=== PATIENT | male | born 1950 | race Two or more races ===

== ENCOUNTER 2020-04-20 11:30 | Inpatient (IN) | payer OTHER ==
[~2020-04-20] VITALS: Ht 167.6 cm; Wt 59.9 kg
[2020-04-27] MEDS ORDERED: CELEBREX200MG PO (15:58)
[2020-04-27] MEDS ORDERED: ACETAMINOPHEN500 M1 PO (15:58)
[2020-04-27] MEDS ORDERED: AMITRIPTYLINE H10 MG PO (15:59)
[2020-04-27] MEDS ORDERED: PEPCID40 MG PO (16:00)
[2020-04-27] MEDS ORDERED: MELATONIN5 M1 PO (16:00)
[2020-04-27] MEDS ORDERED: REFRESH OPTIVE10 M1 OP (16:01)
[2020-04-27] MEDS ORDERED: ZANAFLEX4 M1 PO (16:01)
[2020-04-27] MEDS ORDERED: VALACYCLOVIR500 MG PO (16:02)
[2020-04-27] MEDS ORDERED: MAGNESIUM250 M1 PO (16:03)
[2020-04-27] MEDS ORDERED: MULTI VITAMIN1 EACH PO (16:04)
[2020-04-27] MEDS ORDERED: VITAMIN C500 M6 PO (16:05)
[2020-04-27] MEDS ORDERED: VITAMIN D31250 MCG PO (16:05)
[2020-04-27] MEDS ORDERED: PROBIOTIC1 EAC1 (16:08)
[2020-04-27] MEDS ORDERED: [UNRECOGNIZED DRUG - OTHER] (16:09)
[2020-04-30] MEDS ORDERED: OXYC1TAB9 PO (10:42)
[2020-04-30] MEDS ORDERED: KETO10TA2 PO (10:42)
[2020-04-30] MEDS ORDERED: INTESTINEX680 M1 PO (10:42)
== END 2020-04-30 13:30 | disposition home or self-care (01) | DRG 331 ==
LOC: SURH 04-27 07:00 → O/R 04-27 08:13 → SURH 04-27 08:13
PROVIDERS: ADMIT Surgery; ATTEND Surgery
PROC: 0DJD8ZZ Inspection of Lower Intestinal Tract, Via Natural or Artificial Opening Endoscopic (ICD-10-PCS; 2020-04-27)
PROC: 0DTN4ZZ Resection of Sigmoid Colon, Percutaneous Endoscopic Approach (ICD-10-PCS; principal; 2020-04-27 07:00)
DX: K57.32 Diverticulitis of large intestine without perforation or abscess without bleeding (principal); K21.9 Gastro-esophageal reflux disease without esophagitis